=== PATIENT | male | born 1950 | race Caucasian/White ===

== ENCOUNTER 2020-01-18 09:38 | Inpatient (IN) | payer MEDICARE, MEDICAID ==
[~2020-01-18] VITALS: Ht 177.8 cm; Wt 106.6 kg
[2020-01-18 09:43] VITALS: BP 147/77
[2020-01-18 10:10] LABS: BASO % 0.4 % (0.0-1.0); EOS # 0.2 10*3/uL (0.0-0.4); EOS % 2.6 % (1.0-4.0); HEMATOCRIT 31.2 % (42.0-52.0); LYMPH # 1.1 10*3/uL (1.3-4.4); LYMPH % 12.1 % (27.0-41.0); MEAN CELL VOLUME 91.2 fl (80.0-94.0); MEAN CORPUSCULAR HGB 28.7 pg (27.0-31.0); MEAN CORPUSCULAR HGB CONC 31.4 g/dl (33.0-37.0); MEAN PLATELET VOLUME 11.6 fl (9.6-12.3); MONO # 0.6 10*3/uL (0.1-1.0); MONO % 6.8 % (3.0-9.0); NEUT # 7.1 10*3/uL (2.3-7.9); NEUT % 76.4 % (47.0-73.0); PLATELET COUNT AUTOMATED 210 10*3/uL (130-400); RED BLOOD COUNT 3.42 10*6/uL (4.50-5.90); RED CELL DISTRI WIDTH 18.5 % (0-14.5); WHITE BLOOD COUNT 9.3 10*3/uL (4.8-10.8)
[2020-01-18 10:23] LABS: ACT PARTIAL THROMBO TIME 24.8 SECONDS (20.0-32.1)
[2020-01-18 10:26] LABS: ALBUMIN 2.8 gm/dl (3.1-4.5); ALKALINE PHOSPHATASE 88 U/L (45-117); BUN 23 mg/dl (7-24); CHLORIDE 113 mmol/L (98-107); CREATININE 1.36 mg/dL (0.70-1.30); POTASSIUM 3.8 mmol/L (3.5-5.1); SGOT/AST 12 IU/L (3-35); SGPT/ALT 13 U/L (12-78); SODIUM 141 mmol/L (136-145)
[2020-01-18 10:32] LABS: BILIRUBIN 1+; BLOOD 3+ (NEGATIVE); CLARITY TURBID (CLEAR); GLUCOSE 1+; KETONE NEGATIVE; PH 6.5 (4.5-8.0); SPECIFIC GRAVITY > 1.030 (1.001-1.030)
[2020-01-18 10:33] LABS: BACTERIA 4+; LEUKO ESTERASE 2+ (NEGATIVE); NITRITE NEGATIVE (NEGATIVE); RBC TNTC rbc/hpf (0-2)
--- NOTE | 2020-01-18 10:37 | NUR ---
PATIENT RECEIVED PAIN MEDICATION IVP BY FIFTH HAND STUDENT JOSE ENRIQUE. PATIENT RESTING. ENCOURAGED USE OF CALL LIGHT. WILL CONTINUE TO MONITOR.
[2020-01-18 10:41] LABS: COLOR RED (YELLOW)
--- NOTE | 2020-01-18 10:50 | NUR ---
PATIENT TAKEN TO CT AT THIS TIME.
[2020-01-18 10:52] VITALS: BP 148/89
--- NOTE | 2020-01-18 11:02 | NUR ---
PATIENT HAS RETURNED FROM CT. RESTING AT THIS TIME. NS INFUSING. CALL LIGHT IN REACH.
--- NOTE | 2020-01-18 11:22 | NUR ---
PAIN MEDICATION EFFECTIVE.
[2020-01-18] MEDS ORDERED: COREG12.5 M1 PO (11:57)
[2020-01-18] MEDS ORDERED: BRILINTA90 M1 PO ×2 (11:57→12:58)
[2020-01-18] MEDS ORDERED: JANUVIA25 MG PO (11:57)
[2020-01-18] MEDS ORDERED: ENTRESTO 24 MG1 EACH PO (11:58)
[2020-01-18] MEDS ORDERED: DONEPEZIL HYDRO10 M1 PO (11:58)
[2020-01-18] MEDS ORDERED: LASIX40 MG PO (11:58)
[2020-01-18] MEDS ORDERED: MIDODRINE HCL5 M1 PO (11:59)
[2020-01-18] MEDS ORDERED: RANEXA500 M1 PO ×2 (11:59→12:54)
[2020-01-18 12:00] VITALS: BP 121/69
--- NOTE | 2020-01-18 12:21 | NUR ---
PT WITH MULTIPLE SCABBED AREAS NOTED TO BLE.
[2020-01-18 12:25] VITALS: BP 121/69
--- NOTE | 2020-01-18 12:25 | NUR ---
Time: 1224 A 69 year old MALE admitted to 4E under services of INEZ FELIPE DO. Pt. arrived via bed from ER. Chief complaint: HEMATURIA X24 HRS\. NYDIA SQUIRES
[2020-01-18] MEDS ORDERED: ALBUTEROL2.5 MG/0.5 INH (12:51)
[2020-01-18] MEDS ORDERED: ASPIRIN ADULT L81 M2 PO (12:52)
[2020-01-18] MEDS ORDERED: CIPRO500 MG PO (12:53)
[2020-01-18] MEDS ORDERED: NOVOLOG100 UNIT/1 SC (12:54)
[2020-01-18] MEDS ORDERED: TYLENOL EXTRA500 MG PO (12:55)
[2020-01-18] MEDS ORDERED: SYNTHROID25 MCG PO (12:55)
[2020-01-18] MEDS ORDERED: ZOLOFT50 MG PO (12:56)
--- NOTE | 2020-01-18 13:45 | NUR ---
BLADDER SCANNED PER 'S ORDER. 760CC VISUALIZED ON BLADDER SCAN. STRAIGHT CATH PER ORDER ABD OBTAINED 800CC OF CLOUDY, BLOODY URINE OUTPUT. PT TOLERATED WELL.
[2020-01-18 16:00] VITALS: BP 144/92
--- NOTE | 2020-01-18 16:30 | NUR ---
16FR MCKEON CATHETER PLACED AT THIS TIME PER ORDER. PATIENT TOLERATED WELL. 150CC OF CLOUDY, BLOODY URINE OUTPUT ON INSERTION. TUBING SECURED TO LEG WITH CATH SECURE. CALL LIGHT WITHIN REACH.
[2020-01-18 20:00] VITALS: BP 139/73
[2020-01-19] VITALS: BP 119/60
[2020-01-19 06:03] LABS: BASO % 0.5 % (0.0-1.0); EOS # 0.3 10*3/uL (0.0-0.4); EOS % 3.1 % (1.0-4.0); HEMATOCRIT 30.1 % (42.0-52.0); LYMPH # 1.2 10*3/uL (1.3-4.4); LYMPH % 14.3 % (27.0-41.0); MEAN CELL VOLUME 92.6 fl (80.0-94.0); MEAN CORPUSCULAR HGB 29.2 pg (27.0-31.0); MEAN CORPUSCULAR HGB CONC 31.6 g/dl (33.0-37.0); MEAN PLATELET VOLUME 12.1 fl (9.6-12.3); MONO # 0.7 10*3/uL (0.1-1.0); MONO % 7.8 % (3.0-9.0); NEUT # 6.1 10*3/uL (2.3-7.9); NEUT % 72.8 % (47.0-73.0); PLATELET COUNT AUTOMATED 219 10*3/uL (130-400); RED BLOOD COUNT 3.25 10*6/uL (4.50-5.90); RED CELL DISTRI WIDTH 18.2 % (0-14.5); WHITE BLOOD COUNT 8.4 10*3/uL (4.8-10.8)
[2020-01-19 06:13] LABS: ALBUMIN 2.7 gm/dl (3.1-4.5); ALKALINE PHOSPHATASE 79 U/L (45-117); BUN 19 mg/dl (7-24); CHLORIDE 112 mmol/L (98-107); CHOLESTEROL 205 mg/dL (<200); CREATININE 1.33 mg/dL (0.70-1.30); FREE T4 1.05 ng/dl (0.76-1.46); HDL CHOLESTEROL 44 mg/dl (40-60); LDL CHOLESTEROL 132 mg/dL (9-159); POTASSIUM 3.8 mmol/L (3.5-5.1); SGOT/AST 14 IU/L (3-35); SGPT/ALT 13 U/L (12-78); SODIUM 142 mmol/L (136-145); TOTAL PROTEIN 6.8 gm/dL (6.4-8.2); TRIGLYCERIDES 147 mg/dl (<150); VLDL CHOLESTEROL 29 mg/dL (6-40)
[2020-01-19 06:34] LABS: VITAMIN D, 25-HYDROXY 20.8 ng/mL (30-100)
--- NOTE | 2020-01-19 06:48 | NUR ---
PATIENT HAS SLEPT THROUGH OUT THE NIGHT WITH NO C/O PAIN OR ANY NEEDS.
[2020-01-19 06:50] LABS: ACT PARTIAL THROMBO TIME 24.5 SECONDS (20.0-32.1)
--- NOTE | 2020-01-19 07:30 | NUR ---
Nursing screen and occupational therapy order received. Will follow up with patient for completion of an OT evaluation. Thank you. Valery Ha, OTR/L
[2020-01-19 08:00] VITALS: BP 139/87
--- NOTE | 2020-01-19 08:06 | NUR ---
PHYSICAL THERAPY Screen and PT eval received will follow thank you Ana Alexander PT
--- NOTE | 2020-01-19 09:00 | NUR ---
Cash Manager in to talk to patient. Patient states lives at home with alone. There are one steps in the home. Physician: rocael linton Pharmacy: none listed Home health services: had [facility] Patient's level of ADLs: MINIMAL ASSIST Patient has working utilities: all working DME: cane and walker Follow-up physician's appointment after d/c: will be made by hospitalist nurse director upon discharge Does patient want to access PORTAL?: no Discharge plan discussed with patient, he stated he was living at home alone, was independent in adls and ambulation with a cane or walker, he has [facility] previously, he stated he is currently at [facility] receiving longterm care and would like to return when discharged from the hospital, social media project manager will check and see if he is able to return to [facility] upon discharge. MARCIAL LANGLEY
--- NOTE | 2020-01-19 09:48 | NUR ---
PATIENT IS FROM [facility] RECEIVING SKILLED THERAPY.
--- NOTE | 2020-01-19 10:14 | NUR ---
PHYSICAL THERAPY Ranjeet received chart reviewed per medical meeting this AM pt to be transfered to [facility], will defer therapy at this time, thank you. Ana Alexander PT
--- NOTE | 2020-01-19 10:18 | NUR ---
OT NOTE Occupational therapy order received and chart reviewed. Per discussion at AM discharge planning meeting, patient is being transferred due to increased hematuria. Will continue to follow if discharge plans change. Thank you. Valery Ha OTR/L
[2020-01-19] MEDS ORDERED: VITAMIN D350 MC2 PO (11:36)
--- NOTE | 2020-01-19 11:44 | NUR ---
DEBRIDEMENT DONE @ BEDSIDE BY & . NEW PHOTO & MEASUREMENTS TAKEN FOLLOWING DEBRIDEMENT. PATIENT TOLERATED WELL. EDICATED WITH NORCO PER PRN ORDER FOR PAIN IN LEFT FOOT 01/25, WILL MONITOR FOR EFFECTIVENESS.
[2020-01-19 12:00] VITALS: BP 154/96
--- NOTE | 2020-01-19 12:41 | NUR ---
Message left for case management at [facility] regarding patient having Medicare and an auth is not needed. Faxed demos and clinical to [phone].
--- NOTE | 2020-01-19 12:44 | NUR ---
PER PATIENT, PRN MEDICATION HAS BEEN EFFECTIVE. RELAXED AT THIS TIME.
--- NOTE | 2020-01-19 15:22 | NUR ---
PATIENT PICKED UP BY [facility] AND TRANSPROTED TO [facility] FOR UROLOGY CONSULT. PT REFUSED WOUND PHOTOS AT THIS TIME. HEPLOCK REMAINS IN PLACE. REPORT CALLED TO RECEIVING NURSE.
== END 2020-01-19 15:30 | disposition short-term general hospital (02) | DRG 698 ==
LOC: ED 09:38 → EDHOLD 11:36 → 4E 11:36 → EDHOLD 11:36 → 4E 12:32
PROVIDERS: Internal Medicine; Nurse Practitioner Family; ADMIT Student in an Organized Health Care Education/Training Program; ATTEND Student in an Organized Health Care Education/Training Program
DX: S37.22XA Contusion of bladder, initial encounter (principal); N17.0 Acute kidney failure with tubular necrosis; N30.01 Acute cystitis with hematuria; E44.0 Moderate protein-calorie malnutrition; J90 Pleural effusion, not elsewhere classified; G81.91 Hemiplegia, unspecified affecting right dominant side; R33.9 Retention of urine, unspecified; N47.1 Phimosis; N40.1 Benign prostatic hyperplasia with lower urinary tract symptoms; I50.9 Heart failure, unspecified; E78.5 Hyperlipidemia, unspecified; L97.529 Non-pressure chronic ulcer of other part of left foot with unspecified severity; D64.9 Anemia, unspecified; E87.8 Other disorders of electrolyte and fluid balance, not elsewhere classified; E11.65 Type 2 diabetes mellitus with hyperglycemia; E03.9 Hypothyroidism, unspecified; K42.9 Umbilical hernia without obstruction or gangrene; E11.42 Type 2 diabetes mellitus with diabetic polyneuropathy; I11.0 Hypertensive heart disease with heart failure; R39.11 Hesitancy of micturition; J44.9 Chronic obstructive pulmonary disease, unspecified; Z79.4 Long term (current) use of insulin; Z88.0 Allergy status to penicillin; Z95.1 Presence of aortocoronary bypass graft; Z95.2 Presence of prosthetic heart valve; Z90.49 Acquired absence of other specified parts of digestive tract; Z89.432 Acquired absence of left foot; I25.2 Old myocardial infarction; Z86.73 Personal history of transient ischemic attack (TIA), and cerebral infarction without residual deficits; Z95.0 Presence of cardiac pacemaker; Z81.1 Family history of alcohol abuse and dependence; Z82.3 Family history of stroke; Z68.31 Body mass index [BMI] 31.0-31.9, adult